=== PATIENT | male | born 1975 | race American Indian/Alaskan Native ===

== ENCOUNTER 2018-11-11 09:50 | Outpatient (CLI) | payer OTHER ==
--- NOTE | 2018-11-11 13:53 | Cat Scan Report ---
CTA CHEST. ABDOMEN AND PELVIS HISTORY: Type B aortic dissection COMPARISON: None at this facility TECHNIQUE: Routine chest, abdomen and pelvic CT angiogram performed utilizing intravenous contrast. MIP/3D reformats were post-processed. All CT scans at this location are performed using CT dose reduc tion for ALARA by means of automated exposure control. CONTRAST: 60 ml of Omnipaque 350. Reduced dose secondary to poor renal function. FINDINGS: Heart and Pericardium: No significant abnormality. Pulmonary Arteries: Mildly limited by slightly suboptimal intravenous contrast bolus timing. No brayden s central pulmonary artery filling defects. Thoracic Aorta: A dissection flap is identified originating from the posterior aortic arch and is las t visualized just distal to the takeoff of the renal arteries. The dissection flap appears to involve the origins of the celiac axis and superior mesenteric artery. The left renal artery arises from the true lumen. The right renal artery arises from the false lumen. There is no evidence for stenosis, a neurysm or rupture. There is poor opacification of the distal aorta and bilateral iliac arteries. No obvious dissection in these areas. No significant atherosclerotic disease, aneurysm or stenosis. NONTARGET STRUCTURES: CHEST: Lymphatics: No lymphadenopathy by size criteria. Lungs: No significant abnormality. Trachea and Bronchi: No significant abnormality. ABDOMEN: GI:No significant abnormality. :No significant abnormality. Lymphatics:No significant abnormality. PELVIS: :No significant abnormality. Osseous Structures: Moderate thoracolumbar spondylosis. No fracture or suspicious bony lesion. Additional Findings: 2 ventral wall defects containing fat are identified in the umbilical region and just left of the umbilicus. IMPRESSION: Aortic dissection as outlined above. The dissection flap appears to extend from the posterior aortic arch to just distal to the take off of the renal arteries. Signer Name: Everton Willson Jr, MD Signed: 11/11/2018 1:48 PM Workstation Name: [id number]
== END 2018-11-11 09:51 | disposition home or self-care (01) ==
LOC: CT 09:50
PROVIDERS: ATTEND Specialist
DX: I71.02 Dissection of abdominal aorta (principal); M47.815 Spondylosis without myelopathy or radiculopathy, thoracolumbar region
CPT/HCPCS: 36415; 71275; 74174; 82565; 84520; Q9967